=== PATIENT | female | born 1995 | race Caucasian/White ===

== ENCOUNTER 2017-09-03 14:01 | Emergency (ER) | payer BC ==
--- NOTE | 2017-09-03 15:11 | RAD ---
INDICATION: Illness, fever and cough. COMPARISON: There are no prior studies available for comparison. TECHNIQUE: Dual-energy PA and lateral views of the chest were obtained. FINDINGS: The heart is within normal limits in size. Mediastinal and hilar contours appear within normal limits. There is a relatively dense moderate to large infiltrate involving the right middle and lower lobes. No pleural effusion is seen. IMPRESSION: RIGHT MIDDLE AND LOWER LOBE INFILTRATES.
[2017-09-03] MEDS ORDERED: Aspirin Low Dose CHEW TAB* 81 MG PO ONE (15:19)
[2017-09-03] MEDS ORDERED: NS 0.9% 1000 ML* 1,000 ML IV ONE (15:19)
[2017-09-03] MEDS ORDERED: Levofloxacin 750 MG IVPREMIX(* 750 MG/150 ML BAG IVPB ONE (15:21)
[2017-09-03 16:27] LABS: Hematocrit 36 % (35-47); Mean Corpuscular HGB Conc 33 g/dl (31-36); Mean Corpuscular Hemoglobin 26 pg (27-31); Mean Corpuscular Volume 79 fL (80-97); Mean Platelet Volume 9 um3 (7.4-10.4); Red Blood Count 4.62 10^6/ul (4.0-5.4); Red Cell Distribution Width 15 % (10.5-15); White Blood Count 11.1 10^3/ul (3.5-10.8)
[2017-09-03 16:48] LABS: BUN/Creatinine Ratio 10.1 (8-20); Calcium 8.9 mg/dL (8.6-10.3); EGFR African American 139.5 (>60); EGFR Non-African American 108.5 (>60); Globulin 3.4 g/dL (2-4); Potassium 3.7 mmol/L (3.5-5.0); Total Bilirubin 0.4 mg/dL (0.2-1.0); Total Protein 7.4 g/dL (6.4-8.9)
[2017-09-03 17:56] VITALS: BP 114/68
--- NOTE | 2017-09-06 13:34 | ED ---
Sara Andrews Edward, scribed for Seamus Vinson MD on 09/03/17 at 1521 . Respiratory - HPI Summary HPI Summary: 22 y/o female presents to the ED c/o productive cough lasting several days. Associated sx: fever (101) three days ago, body aches, chills, decreased appetite. Non smoker. PMHx GERD, still's disease. SHx wisdom teeth removal, bone marrow aspiration w/ Still's disease. LNMP 3 and a half weeks ago. - History of Current Complaint Chief Complaint: EDUpperRespComplaint Stated Complaint: COUGH,FEVER Time Seen by Provider: 09/03/17 15:19 Hx Obtained From: Patient Onset/Duration: Lasting Days, Still Present Aggravating Factor(s): Nothing Alleviating Factor(s): Nothing Associated Signs and Symptoms: Fever - Allergy/Home Medications Allergies/Adverse Reactions: Allergies Allergy/AdvReac Type Severity Reaction Status Date / Time radha Allergy Swelling Uncoded 09/03/17 14:11 Of Face,Lips,& Throat PMH/Surg Hx/FS Hx/Imm Hx Previously Healthy: No Endocrine/Hematology History: Reports: Other Endocrine/Hematological Disorders - Still's disease GI History: Reports: Hx Gastroesophageal Reflux Disease - Surgical History Surgery Procedure, Year, and Place: Bone marrow aspiration, wisdom teeth removal Infectious Disease History: Yes Infectious Disease History: Denies: Traveled Outside the [place] in Last 30 Days - Family History Known Family History: Negative: Cardiac Disease, Hypertension, Diabetes - Social History Occupation: Student Lives: Dormitory/Roommates Alcohol Use: None Hx Substance Use: No Substance Use Type: Reports: None Hx Tobacco Use: No Smoking Status (MU): Never Smoked Tobacco Review of Systems Positive: Fever, Chills Eyes: Negative ENT: Negative Cardiovascular: Negative Positive: Cough Gastrointestinal: Other - decreased appetite Genitourinary: Negative Musculoskeletal: Other - body aches Skin: Negative Neurological: Negative Psychological: Normal All Other Systems Reviewed And Are Negative: Yes Physical Exam - Summary Physical Exam Summary: VITAL SIGNS: Reviewed. GENERAL: Patient is a well-developed and nourished female who is lying comfortable in the stretcher. Patient is not in any acute respiratory distress. HEAD AND FACE: No signs of trauma. No ecchymosis, hematomas or skull depressions. No sinus tenderness. EYES: PERRLA, EOMI x 2, No injected conjunctiva, no nystagmus. EARS: Hearing grossly intact. Ear canals and tympanic membranes are within normal limits. MOUTH: Oropharynx within normal limits. NECK: Supple, trachea is midline, no adenopathy, no JVD, no carotid bruit, no c- spine tenderness, neck with full ROM. CHEST: Symmetric, no tenderness at palpation LUNGS: Crackles at the bases of both lungs. CVS: Regular rate and rhythm, S1 and S2 present, no murmurs or gallops appreciated. ABDOMEN: Soft, non-tender. No signs of distention. No rebound no guarding, and no masses palpated. Bowel sounds are normal. EXTREMITIES: FROM in all major joints, no edema, no cyanosis or clubbing. NEURO: Alert and oriented x 3. No acute neurological deficits. Speech is normal and follows commands. SKIN: The patient is diaphoretic. Triage Information Reviewed: Yes Vital Signs On Initial Exam: Initial Vitals Temp Pulse Resp BP Pulse Ox 97.1 F 119 22 129/71 94 09/03/17 14:07 09/03/17 14:07 09/03/17 14:07 09/03/17 14:07 09/03/17 14:07 Vital Signs Reviewed: Yes Diagnostics - Vital Signs Vital Signs Temp Pulse Resp BP Pulse Ox 09/03/17 14:07 97.1 F 119 22 129/71 94 - Laboratory Lab Results: Lab Results 09/03/17 09/03/17 09/03/17 Range/Units 16:10 16:10 16:10 WBC 11.1 H (3.5-10.8) 10^3/ul RBC 4.62 (4.0-5.4) 10^6/ul Hgb 12.0 (12.0-16.0) g/dl Hct 36 (35-47) % MCV 79 L (80-97) fL MCH 26 L (27-31) pg MCHC 33 (31-36) g/dl RDW 15 (10.5-15) % Plt Count 309 (150-450) 10^3/ul MPV 9 (7.4-10.4) um3 Neut % (Auto) 78.6 (38-83) % Lymph % (Auto) 12.1 L (25-47) % Preble % (Auto) 8.8 (1-9) % Eos % (Auto) 0.1 (0-6) % Baso % (Auto) 0.4 (0-2) % Absolute Neuts (auto) 8.7 H (1.5-7.7) 10^3/ul Absolute Lymphs (auto) 1.3 (1.0-4.8) 10^3/ul Absolute Monos (auto) 1.0 H (0-0.8) 10^3/ul Absolute Eos (auto) 0 (0-0.6) 10^3/ul Absolute Basos (auto) 0 (0-0.2) 10^3/ul Absolute Nucleated RBC 0.01 10^3/ul Nucleated RBC % 0 Sodium 136 (133-145) mmol/L Potassium 3.7 (3.5-5.0) mmol/L Chloride 102 (101-111) mmol/L Carbon Dioxide 26 (22-32) mmol/L Anion Gap 8 (2-11) mmol/L BUN 7 (6-24) mg/dL Creatinine 0.69 (0.51-0.95) mg/dL Est GFR ( Amer) 139.5 (>60) Est GFR (Non-Af Amer) 108.5 (>60) BUN/Creatinine Ratio 10.1 (8-20) Glucose 90 (70-100) mg/dL Lactic Acid 0.8 (0.5-2.0) mmol/L Calcium 8.9 (8.6-10.3) mg/dL Total Bilirubin 0.40 (0.2-1.0) mg/dL AST 16 (13-39) U/L ALT 15 (7-52) U/L Alkaline Phosphatase 58 (34-104) U/L Total Protein 7.4 (6.4-8.9) g/dL Albumin 4.0 (3.2-5.2) g/dL Globulin 3.4 (2-4) g/dL Albumin/Globulin Ratio 1.2 (1-3) Result Diagrams: 09/03/17 16:10 09/03/17 16:10 Lab Statement: Any lab studies that have been ordered have been reviewed, and results considered in the medical decision making process. - Radiology CXR Xray Interpretation: Positive (See Comments) - RIGHT MIDDLE AND LOWER LOBE INFILTRATES. Radiology Interpretation Completed By: Radiologist Re-Evaluation - Re-Evaluation 1 Re-Evaluation Time: 17:38 Comment: Discuss plan of care Disposition - Course Assessment/Plan: 22 y/o female presents to the ED c/o productive cough lasting several days. Associated sx: fever (101) three days ago, body aches, chills, decreased appetite. Non smoker. PMHx GERD, still's disease. SHx wisdom teeth removal, bone marrow aspiration w/ Still's disease. LNMP 3 and a half weeks ago. CXR SHOWS RIGHT MIDDLE AND LOWER LOBE INFILTRATES. Test results are without significant abnormalities except WBC 11.1. CXR shows R middle and lower lobe PNA. The pt was given iv fluids and started on Levaquin. The pts CURB 65 score equal to 1. It seems the pt could be treated as an outpatient. Therefore the pt will be d/c home with f/u with PCP with a prescription for Levaquin. - Differential Dx - Cardiopulmonary Differential Diagnoses - Cardiopulmonary: Bronchitis, CHF, Chest Wall Pain, Hypoxia - Diagnoses Provider Diagnoses: Pneumonia Discharge - Discharge Plan Condition: Stable Disposition: HOME Prescriptions: Levofloxacin TAB* [Levaquin TAB*] 750 mg PO DAILY #9 tab Patient Education Materials: Pneumonia (ED) Forms: *School Release Referrals: [facility] [Primary Care Provider[facility] - 3 Days (PLEASE F/U IN 2-3 DAYS) The documentation as recorded by the Sara flores Edward accurately reflects the service I personally performed and the decisions made by me, Seamus Vinson MD.
== END 2017-09-03 17:55 | disposition home or self-care (01) ==
LOC: ED 14:01
DX: J18.9 Pneumonia, unspecified organism (principal); K21.9 Gastro-esophageal reflux disease without esophagitis
CPT/HCPCS: 36415; 71020; 80053; 83605; 85025; 87040; 96365; 99283; A9270-GY